=== PATIENT | female | born 1955 | race Caucasian/White ===

== ENCOUNTER 2017-02-11 17:22 | Emergency (ER) | payer SELFPAY ==
--- NOTE | 2017-02-11 18:20 | ER Document Report ---
HPI - HPI Patient complains to provider of: chest pain with swallowing and eating Onset: Other - saturday Quality of pain: Sharp Pain Level: 2 Context: 61 yo obese DM2, c section, appendectomy, Hysterectomy non smoker c/o anterior throat and upper chest heaviness like a brick between her breast saturday morning at 9 am, lasted few seconds intermittently , 3-4 hours inbetween. Progress to only sharp retrosternal midline pain with swallowing and eating since. Accucheck 270 this miorning and again had the symptoms when she tried to eat lunch today. No n/v/d. No abd. pain. No sob. Negative chemical stress test less than year ago, no known CAD or GERD. PCP: dr mila Henderson. Started Vyctoza on saturday. No symptoms now. Associated Symptoms: None Exacerbated by: Other - see above Relieved by: Denies Similar symptoms previously: No Recently seen / treated by doctor: Yes - mila saturday - ROS ROS below otherwise negative: Yes Systems Reviewed and Negative: Yes All other systems reviewed and negative Past Medical History - General Information source: Patient - Social History Smoking Status: Never Smoker Frequency of alcohol use: None Drug Abuse: None Lives with: Family Family History: Reviewed & Not Pertinent Endocrine Medical History: Reports: Hx Diabetes Mellitus Type 2 Past Surgical History: Reports: Hx Appendectomy, Hx Section, Hx Hysterectomy Vertical Provider Document - CONSTITUTIONAL Agree With Documented VS: Yes Exam Limitations: No Limitations General Appearance: No Apparent Distress - INFECTION CONTROL TRAVEL OUTSIDE OF THE [place] IN LAST 30 DAYS: No - HEENT HEENT: Normal ENT Exam - NECK Neck: Supple, Thyroid Normal. negative: Lymphadenopathy-Left, Lymphadenopathy- Right - RESPIRATORY Respiratory: Breath Sounds Normal, No Respiratory Distress, Other - tender mid sternum (not same pain) O2 Sat by Pulse Oximetry: 97 - CARDIOVASCULAR Cardiovascular: Regular Rate, Regular Rhythm - GI/ABDOMEN Gastrointestinal: Abdomen Soft, Abdomen Tender - mild epigastric, not same pain , No Organomegaly - MUSCULOSKELETAL/EXTREMETIES Musculoskeletal/Extremeties: JOSE LOPEZ - NEURO Level of Consciousness: Awake, Alert, Appropriate - DERM Integumentary: Warm, Dry, No Rash Course - Re-evaluation Re-evalutation: 02/11/17 19:04 Dr. Mason evaluated the patient and states to treat her with Carafate to see the no experience for endoscopy. No lab work needed but he does recommend getting EKG which he will evaluate. EKG NSR nothing acute. 02/12/17 11:42 - Vital Signs Vital signs: Temp Pulse Resp BP Pulse Ox 97.5 F 75 16 149/75 H 97 02/11/17 17:31 02/11/17 17:31 02/11/17 17:31 02/11/17 17:31 02/11/17 17:31 Discharge - Discharge Clinical Impression: retrosternal chest pain with swallowing, Acute esophagitis Condition: Good Disposition: HOME, SELF-CARE Instructions: Antacid Therapy ([facility]), Reflux Disease (GERD) ([facility]), Sucralfate ( [facility]) Additional Instructions: carafate four times per day see the no experience for endoscopy to er if worse copy of normal ekg given to you Please complete the patient satisfaction survey if you get one, and return it.. If you do not receive a survey, then you can go to the [facility] website, [email or web address] and place your comments about your very good care. Thank you very much. It was a pleasure being your medical provider today. Prescriptions: Sucralfate [Carafate] 1 gm PO QID #200 ml Referrals: MARY JO GILLETTE MD [ACTIVE STAFF] - Follow up as needed LALIT HART MD [Primary Care Provider] - Follow up as needed
[2017-02-11] MEDS ORDERED: NORMAL SALINE 1000 ML 1,000 ML IV PRN (19:03)
[2017-02-11] MEDS ORDERED: METOCLOPRAMIDE HCL INJ/PF 10 MG/2 ML SDV IV ONE (19:04)
--- NOTE | 2017-02-11 19:04 | ER Document Report ---
ED Medical Screen (RME) - General Chief Complaint: Possible FB in throat Stated Complaint: THROAT PAIN Time Seen by Provider: 02/11/17 18:19 Notes: Patient states she is probably has no abdominal pain however she has severe vomiting and is unable to hold down any liquids or solids. No vaginal bleeding or discharge. TRAVEL OUTSIDE OF THE [place] IN LAST 30 DAYS: No - Related Data Allergies/Adverse Reactions: No Known Allergies Allergy (Unverified 02/11/17 17:34) Past Medical History - Social History Chew tobacco use (# tins/day): No Frequency of alcohol use: None Drug Abuse: None Endocrine Medical History: Reports: Hx Diabetes Mellitus Type 2 Renal/ Medical History: Denies: Hx Peritoneal Dialysis Past Surgical History: Reports: Hx Section, Hx Hysterectomy Physical Exam - Vital signs Vitals: Temp Pulse Resp BP Pulse Ox 97.5 F 75 16 149/75 H 97 02/11/17 17:31 02/11/17 17:31 02/11/17 17:31 02/11/17 17:31 02/11/17 17:31 Course - Vital Signs Vital signs: Temp Pulse Resp BP Pulse Ox 97.5 F 75 16 149/75 H 97 02/11/17 17:31 02/11/17 17:31 02/11/17 17:31 02/11/17 17:31 02/11/17 18:20
[2017-02-11] MEDS ORDERED: SUCRALFATE SUSP 1 GM/10 ML UDCUP PO ONE (19:06)
[2017-02-11 20:02] VITALS: BP 118/78
--- NOTE | 2017-02-11 23:23 | EKG REPORT ---
SEVERITY:- BORDERLINE ECG - SINUS RHYTHM BORDERLINE T ABNORMALITIES, DIFFUSE LEADS : Confirmed by: Jolie Dodson 11-Feb-2017 23:22:29
== END 2017-02-11 20:01 | disposition home or self-care (01) ==
LOC: ER 17:22
DX: K20.9 Esophagitis, unspecified (principal); R13.19 Other dysphagia; R07.0 Pain in throat; R11.10 Vomiting, unspecified; E11.9 Type 2 diabetes mellitus without complications; Z90.710 Acquired absence of both cervix and uterus
CPT/HCPCS: 93005; 93010; 99285

== ENCOUNTER 2017-10-26 23:43 | Emergency (ER) | payer BC, MEDICARE ==
--- NOTE | 2017-10-27 00:34 | ER Document Report ---
ED Medical Screen (RME) - General Chief Complaint: High Blood Sugar Stated Complaint: BLOOD SUGAR ISSUE Time Seen by Provider: 10/27/17 00:31 Mode of Arrival: Ambulatory Information source: Patient Notes: 62-year-old female presents to ED for complaint of diabetes with her Accu-Chek machine reading high tonight. She states she has never had it really just high she has always had a number. She states she does have diagnosis of diabetes type 2, fluid retention, and vitamin D deficiency. She is on metformin, hydrochlorothiazide, vitamin D, and biotin. She is alert and oriented, respirations regular and unlabored, speaking in full sentences, and walks with a even steady gait. I have ordered Accu-Chek and labs in the pit area. I have greeted and performed a rapid initial assessment of this patient. A comprehensive ED assessment and evaluation of the patient, analysis of test results and completion of medical decision making process will be conducted by an additional ED providers. TRAVEL OUTSIDE OF THE [place] IN LAST 30 DAYS: No - Related Data Allergies/Adverse Reactions: No Known Allergies Allergy (Unverified 02/11/17 17:34) Past Medical History Endocrine Medical History: Reports: Hx Diabetes Mellitus Type 2 Renal/ Medical History: Denies: Hx Peritoneal Dialysis Past Surgical History: Reports: Hx Appendectomy, Hx Section, Hx Hysterectomy Physical Exam - Vital signs Vitals: Temp Pulse Resp BP Pulse Ox 99.9 F 92 17 143/75 H 95 10/27/17 00:10 10/27/17 00:10 10/27/17 00:10 10/27/17 00:10 10/27/17 00:10 Course - Vital Signs Vital signs: Temp Pulse Resp BP Pulse Ox 99.9 F 92 17 143/75 H 95 10/27/17 00:10 10/27/17 00:10 10/27/17 00:10 10/27/17 00:10 10/27/17 00:10 Doctor's Discharge - Discharge Referrals: LALIT HART MD [Primary Care Provider] - Follow up as needed
[2017-10-27] MEDS ORDERED: NORMAL SALINE 500 ML IV ONE (00:54)
[2017-10-27] MEDS ORDERED: INSULIN REG, HUMAN 100 UNIT/ML 3 ML VIAL (PYX) SUBCUT ONE (02:21)
[2017-10-27 02:42] LABS: VENOUS BLOOD BASE EXCESS 1.1 mmol/L; VENOUS BLOOD HCO3 25.4 mmol/L (20-32); VENOUS BLOOD PCO2 39.4 mmHg (35-63); VENOUS BLOOD PH 7.43 (7.30-7.42)
[2017-10-27 02:48] LABS: ABSOLUTE EOSINOPHILS # (AUTO) 0.1 10^3/uL (0.0-0.6); ABSOLUTE LYMPHOCYTES (AUTO) 0.7 10^3/uL (0.5-4.7); ABSOLUTE MONOCYTES (AUTO) 0.4 10^3/uL (0.1-1.4); ABSOLUTE NEUT (AUTO) 8.3 10^3/uL (1.7-8.2); BASOPHILS % (AUTO) 0.2 % (0-2); EOSINOPHILS % (AUTO) 0.7 % (0-6); HEMATOCRIT 41.3 % (36.0-47.0); HEMOGLOBIN 14.1 g/dL (12.0-15.5); LYMPHOCYTES % (AUTO) 7.6 % (13-45); MEAN CORPUSCULAR HEMOGLOBIN 28.7 pg (27.0-33.4); MEAN CORPUSCULAR HGB CONC 34.1 g/dL (32.0-36.0); MEAN CORPUSCULAR VOLUME 84 fl (80-97); MONOCYTES % (AUTO) 4.6 % (3-13); PLATELET COUNT 211 10^3/uL (150-450); RED CELL DISTRIBUTION WIDTH 12.8 % (11.5-14.0); SEGMENTED NEUTROPHILS % (AUTO) 86.9 % (42-78); TOTAL CELLS COUNTED % (AUTO) 100 %; WHITE BLOOD COUNT 9.6 10^3/uL (4.0-10.5)
[2017-10-27 02:57] LABS: ALANINE AMINOTRANSFERASE 87 U/L (9-52); ALBUMIN 3.8 g/dL (3.5-5.0); ALKALINE PHOSPHATASE 96 U/L (38-126); ANION GAP 12 (5-19); ASPARTATE AMINO TRANSFERASE 109 U/L (14-36); BILIRUBIN,DIRECT 0.4 mg/dL (0.0-0.4); BILIRUBIN,TOTAL 0.7 mg/dL (0.2-1.3); BLOOD UREA NITROGEN 20 mg/dL (7-20); CALCIUM 9.2 mg/dL (8.4-10.2); CARBON DIOXIDE 27 mmol/L (22-30); CHLORIDE 94 mmol/L (98-107); POTASSIUM 3.6 mmol/L (3.6-5.0); SODIUM 132.7 mmol/L (137-145); TOTAL PROTEIN 6.7 g/dL (6.3-8.2)
[2017-10-27 03:08] LABS: GLUCOSE 428 mg/dL (75-110)
--- NOTE | 2017-10-27 03:29 | ER Document Report ---
ED General - General Chief Complaint: High Blood Sugar Stated Complaint: BLOOD SUGAR ISSUE Time Seen by Provider: 10/27/17 00:31 Mode of Arrival: Ambulatory Notes: Patient is a 62-year-old female presents with complaint of high blood sugar. She said the only symptom she has so she with is just slight blurred vision. No headache. No vomiting. No diarrhea. Patient says this is of for some her, there is ever read high when she checked her blood sugar. She did take a dose of her Lantus before leaving the house. She takes 15 units at night which she was recently started on because her blood sugars have been running high. She said her blood sugars been running in the 300s and low 400s. This is been ongoing since she was treated for possible pneumonia. She was treated with prednisone and antibiotics. She just finished the course of prednisone a few days ago. She denies any fevers. She says her lungs are doing much better. She denies any vomiting. No abdominal pain. No chest pain. No other complaints at this time. TRAVEL OUTSIDE OF THE [place] IN LAST 30 DAYS: No - Related Data Allergies/Adverse Reactions: No Known Allergies Allergy (Unverified 02/11/17 17:34) Past Medical History - General Information source: Patient - Social History Smoking Status: Never Smoker Chew tobacco use (# tins/day): No Frequency of alcohol use: None Drug Abuse: None Family History: Reviewed & Not Pertinent Patient has suicidal ideation: No Patient has homicidal ideation: No Endocrine Medical History: Reports: Hx Diabetes Mellitus Type 2 Renal/ Medical History: Denies: Hx Peritoneal Dialysis Past Surgical History: Reports: Hx Appendectomy, Hx Section, Hx Hysterectomy Review of Systems - Review of Systems Notes: My Normal Review Basic REVIEW OF SYSTEMS: CONSTITUTIONAL : Denies fever, chills, or sweats. Denies recent illness. EENT: Denies eye, ear, throat, or mouth pain or symptoms. Denies nasal or sinus congestion. CARDIOVASCULAR: Denies chest pain. RESPIRATORY: Denies cough, cold, or chest congestion. Denies shortness of breath, difficulty breathing, or wheezing. GASTROINTESTINAL: Denies abdominal pain. Denies nausea, vomiting, or diarrhea. Denies constipation. Last BM: GENITOURINARY: Denies difficulty urinating, painful urination, burning, frequency, or blood in urine. MUSCULOSKELETAL: Denies neck or back pain or joint pain or swelling. SKIN: Denies rash or skin lesions. NEUROLOGICAL: Denies sensory or motor loss. ALL OTHER SYSTEMS REVIEWED AND NEGATIVE. Physical Exam - Vital signs Vitals: Temp Pulse Resp BP Pulse Ox 99.9 F 92 17 143/75 H 95 10/27/17 00:10 10/27/17 00:10 10/27/17 00:10 10/27/17 00:10 10/27/17 00:10 - Notes Notes: General Appearance: Well nourished, alert, cooperative, no acute distress, no obvious discomfort. Appearing. Vitals: reviewed, See vital signs table. Head: no swelling or tenderness to the head Eyes: PERRL, EOMI, Conjuctiva clear Mouth: No decreasd moisture Lungs: No wheezing, No rales, No rhonci, No accessory muscle use, good air exchange bilaterally. Heart: Normal rate, Regular rythm, No murmur, no rub Abdomen: Normal BS, soft, No rigidity, No abdominal tenderness, No guarding, no rebound, no abdominal masses, no organomegaly Extremities: strength 5/5 in all extremities, good pulses in all extremities, no swelling or tenderness in the extremities, no edema. Skin: warm, dry, appropriate color, no rash Neuro: speech clear, oriented x 3, normal affect, responds appropriately to questions. Course - Re-evaluation Re-evalutation: 10/27/17 04:03 She is feeling improved. Her blood sugars down trending appropriately. I will have her increase her long acting insulin from 15 units to 20 units. I suspect that her recent hyperglycemia is most likely related to the fact that she is recently on prednisone for what sounds to be bronchitis. At this time I feel the patient safe to be discharged home. I strongly encouraged her return to ER immediately if she has current increasing blood sugars or if she feels unwell. Patient agrees with plan will be discharged home. Dictation of this chart was performed using voice recognition software; therefore, there may be some unintended grammatical errors. - Vital Signs Vital signs: Temp Pulse Resp BP Pulse Ox 99.9 F 92 24 H 141/70 H 95 10/27/17 00:10 10/27/17 00:10 10/27/17 03:01 10/27/17 03:01 10/27/17 03:01 - Laboratory Result Diagrams: 10/27/17 01:59 10/27/17 01:59 Laboratory results interpreted by me: 10/27/17 10/27/17 10/27/17 01:59 01:59 02:28 Seg Neutrophils % 86.9 H Lymphocytes % 7.6 L Absolute Neutrophils 8.3 H VBG pH 7.43 H Sodium 132.7 L Chloride 94 L Glucose 428 H* POC Glucose AST 109 H ALT 87 H 10/27/17 03:41 Seg Neutrophils % Lymphocytes % Absolute Neutrophils VBG pH Sodium Chloride Glucose POC Glucose 362 H AST ALT Discharge - Discharge Clinical Impression: Hyperglycemia Condition: Good Disposition: HOME, SELF-CARE Additional Instructions: Please increase your insulin dosage to 20 units a day. Please continue to keep a close eye on your blood sugar. Your blood sugars routinely below 150 then he can decrease your insulin dosage back down to 15 units. If your blood sugars routinely above 400 then follow-up with your doctor or return to the ER for reevaluation. Dictation of this chart was performed using voice recognition software; therefore, there may be some unintended grammatical errors. Referrals: LALIT HART MD [Primary Care Provider] - 10/28/17
[2017-10-27 04:47] VITALS: BP 115/69
== END 2017-10-27 04:51 | disposition home or self-care (01) ==
LOC: ER 23:43
DX: E11.65 Type 2 diabetes mellitus with hyperglycemia (principal); Z79.4 Long term (current) use of insulin; H53.8 Other visual disturbances
CPT/HCPCS: 99285; 36415; 82962; 85025; 80053; 82803; J1815; J7040